=== PATIENT | female | born 1975 | race Caucasian/White ===

== ENCOUNTER 2016-09-08 13:42 | Emergency (ER) | payer BC, MEDICARE | END 2016-09-08 14:50 | disposition left against medical advice (07) | LOC: UCCORT 13:42 | DX: M25.531 Pain in right wrist (principal); Z53.21 Procedure and treatment not carried out due to patient leaving prior to being seen by health care provider ==

== ENCOUNTER 2016-09-08 16:44 | Emergency (ER) | payer BC, MEDICARE ==
[2016-09-08 17:27] VITALS: BP 137/82
--- NOTE | 2016-09-08 18:33 | RAD ---
Indication: Right wrist injury 3 views of the wrist demonstrates no fracture. No other bone or joint abnormality is identified. IMPRESSION: NO FRACTURE OF THE RIGHT WRIST IS NOTED. If clinical symptoms persist follow-up imaging is suggested.
--- NOTE | 2016-09-08 19:20 | RAD ---
Indication: Right elbow injury. 4 views of the right elbow demonstrates no fracture. No joint effusion is noted. IMPRESSION: No joint effusion is identified.
--- NOTE | 2016-09-08 19:55 | UC ---
Hand/Wrist HPI - HPI Summary HPI Summary: FALL ON OUTSTRETCHED RIGHT HAND TWO WEEKS AGO. CURRENTLY HAVING PAIN, NUMBNESS THAT RADIATES TO RIGHT FOREARM. NO PREVIOUS WRIST INJURY. 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 - History Of Current Complaint Chief Complaint: UCGeneralIllness Stated Complaint: S/P FALL RIGHT WRIST/ARM Time Seen by Provider: 09/08/16 17:42 Hx Obtained From: Patient Hx Last Menstrual Period: 08/11/16 Onset/Duration: Sudden Onset, Lasting Weeks, Still Present Severity Initially: Moderate Severity Currently: Mild Pain Intensity: 0 Pain Scale Used: 0-10 Numeric Character Of Pain: Dull, Aching Aggravating Factor(s): Movement, Lifting, Extension, Twisting Alleviating: Nothing Associated Signs And Symptoms: Positive: Numbness/Tingling - RADIAL ASPECT OF FOREARM Related History: Dominant Hand Right - Allergies/Home Medications Allergies/Adverse Reactions: Allergies Allergy/AdvReac Type Severity Reaction Status Date / Time Sulfa Antibiotics Allergy Intermediate Hives Verified 09/08/16 17:18 Home Medications: Home Medications Famotidine TAB* [Pepcid 20 MG TAB*] 20 mg PO BID 09/08/16 [History Confirmed ] Sertraline* [Zoloft*] 1 tab DAILY 09/08/16 [History Confirmed 09/08/16] PMH/Surg Hx/FS Hx/Imm Hx Previously Healthy: Yes Endocrine History Of: Reports: Thyroid Disease - Hypothyroidism - Surgical History Surgical History: Yes Surgery Procedure, Year, and Place: laminectomy, peripheral nerve decompression R leg, nerve stimulator implant and removal. gallbladder out. RIGHT foot plate/ screws; LEFT knee; Gastric bypass - Family History Known Family History: Negative: Renal Disease - Social History Occupation: Disabled Lives: With Family Alcohol Use: None Substance Use Type: None, Prescribed Smoking Status (MU): Former Smoker Type: Cigarettes Amount Used/How Often: 06/17 PPD Have You Smoked in the Last Year: Yes When Did the Patient Quit Smoking/Using Tobacco: 09/14/13 - Immunization History Most Recent Influenza Vaccination: 2016 Most Recent Tetanus Shot: UTD Most Recent Pneumonia Vaccination: N/A Review of Systems Constitutional: Negative Skin: Negative Eyes: Negative ENT: Negative Respiratory: Negative Cardiovascular: Negative Gastrointestinal: Negative Genitourinary: Negative Motor: Negative Neurovascular: Negative Musculoskeletal: Arthralgia, Myalgia Neurological: Negative Psychological: Negative All Other Systems Reviewed And Are Negative: Yes Physical Exam Triage Information Reviewed: Yes Appearance: Well-Appearing, No Pain Distress, Well-Nourished Vital Signs: Initial Vital Signs Temp 97.2 F 09/08/16 17:19 Pulse 76 09/08/16 17:19 Resp 18 09/08/16 17:19 BP 137/82 09/08/16 17:19 Pulse Ox 100 09/08/16 17:19 Vital Signs Reviewed: Yes Eye Exam: Normal ENT Exam: Normal ENT: Positive: Normal ENT inspection, Hearing grossly normal, TMs normal Dental Exam: Normal Neck exam: Normal Neck: Positive: Supple, Nontender, No Lymphadenopathy Respiratory Exam: Normal Respiratory: Positive: Chest non-tender, Lungs clear, Normal breath sounds, No respiratory distress, No accessory muscle use Cardiovascular Exam: Normal Cardiovascular: Positive: RRR, No Murmur Abdominal Exam: Normal Musculoskeletal: Positive: Strength Intact, ROM Intact, No Edema, Other: - PAIN WITH EXTENSION OF WRIST; REPORTS PARESTHESIAS IN RIGHT RADIAL ASPECT OF WRIST Neurological Exam: Normal Psychological Exam: Normal Skin Exam: Normal Hand/Wrist Course/Dx - Differential Dx/Diagnosis Differential Diagnosis/HQI/PQRI: Contusion, Fracture, Sprain, Strain, Tendonitis Provider Diagnoses: RIGHT WRIST SPRAIN. RIGHT WRIST INTERMITTENT PARESTHESIAS RADIAL ASPECT. Discharge - Discharge Plan Condition: Stable Disposition: HOME Patient Education Materials: Wrist Sprain (ED) Referrals: Richard Jones MD [Medical Doctor] - Romie Bullock MD [Medical Doctor] - Non Staff,Doctor [Primary Care Provider] -
== END 2016-09-08 19:45 | disposition home or self-care (01) ==
LOC: UCCORT 16:44
DX: S63.501A Unspecified sprain of right wrist, initial encounter (principal); W19.XXXA Unspecified fall, initial encounter; Y93.9 Activity, unspecified; Y92.9 Unspecified place or not applicable; E03.9 Hypothyroidism, unspecified; Z88.2 Allergy status to sulfonamides; Z87.891 Personal history of nicotine dependence
CPT/HCPCS: 99212; G0463